=== PATIENT | male | born 1990 | race Two or more races ===

== ENCOUNTER 2024-11-11 18:15 | Emergency (ER) | payer OTHER, SELFPAY ==
[2024-11-11 18:16] VITALS: BMI 30.2
[2024-11-11 18:38] VITALS: BP 147/91; PULSE 76; RESP 20; TEMP 36.7; O2SAT 99
--- NOTE | 2024-11-11 18:41 | XR_ITS ---
Examination: PA lateral chest 2 views Technique: Upright PA lateral chest 2 views Exam date and time: November 11, 2024 at 1909 hrs. Indications: Injury to the chest yesterday chest pain Findings: Normal heart size No pneumothorax Clavicles ribs thoracic vertebral bodies and sternal segments appear intact Impression: No pneumothorax pulmonary contusion or hemothorax
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
== END 2024-11-11 20:45 | disposition home or self-care (01) ==
PROVIDERS: Emergency Provider Emergency Medicine; PCP Family Medicine
DX: S20.219A Contusion of unspecified front wall of thorax, initial encounter (principal); W50.0XXA Accidental hit or strike by another person, initial encounter
CPT/HCPCS: 71046; 99283

== ENCOUNTER 2024-11-16 20:28 | Emergency (ER) | payer OTHER, SELFPAY ==
[2024-11-16 20:28] VITALS: BMI 30.9
[2024-11-16 21:10] VITALS: BP 142/89; PULSE 83; RESP 20; TEMP 36.9; O2SAT 97
--- NOTE | 2024-11-16 21:18 | XR_ITS ---
Examination: CT abdomen with intravenous contrast CT pelvis with intravenous contrast 2-D coronal reconstructions 2-D sagittal reconstructions Date and time of exam:November 16, 2024 10:32 PM Indications: Patient fell off a ladder yesterday with injury in the abdomen, abdominal pain and bruising. CTDI: vol (mGy) 9.23 DLP: (mGycm) 571 Technique: Multiple axial sections of the abdomen and pelvis have been obtained. 64 slice high-resolution scanner used. 3 mm axial sections have been obtained, post intravenous injection 60 cc [id number] 2-D sagittal, coronal reconstructions obtained. Low dose protocols were performed. One or more of the following dose reduction techniques were used; automated exposure control, adjustment of the mA and/or KV according to patient size, use of iterative reconstruction technique. Findings: No focal liver splenic or renal laceration No perinephric hematoma No gallstones No pancreatic or adrenal mass Contusion anterior and left lateral abdominal wall with hemorrhage in the abdominal musculature and 5 x 3.6 x 3.8 cm hematoma in the left anterior abdominal wall image 35 Aorta normal size Normal appendix Negative for pneumoperitoneum Urinary bladder intact Impression: No abdominal parenchymal laceration Abdominal aorta intact No free blood in the abdomen or pelvis Large soft tissue contusion anterior left lateral abdominal wall with 5 x 3.6 x 3.8 hematoma in the left anterior abdominal wall
--- NOTE | 2024-11-16 21:19 | PD.EDRME ---
Rapid Medical Screening Exam [facility] Arrival date/time: 11/16/24 20:28 34M with no significant PMH presents to ED with L lower ab pain/bruising after fall from 10 ft ladder 2 days ago. Patient denies hitting his head, neck, back, chest, SOB, N/V, and bowel/bladder issues. Patient just has a lot of bruising on stomach area and was convinced to come to ED. Chief Complaint: Fall Vital signs: Vital Signs Temperature 98.5 F 11/16/24 21:10 Pulse Rate 83 11/16/24 21:10 Respiratory Rate 20 11/16/24 21:10 Blood Pressure 142/89 H 11/16/24 21:10 Pulse Oximetry (%) 97 11/16/24 21:10 Oxygen Delivery Method Room Air 11/16/24 21:10
[2024-11-16 23:23] LABS: Basophils # (Auto) 0.1 Thou/mm3 (0.0-0.2); Basophils % (Auto) 1 % (0-2.5); Eosinophils # (Auto) 0.3 Thou/mm3 (0.0-0.5); Eosinophils % (Auto) 3 % (0-10); Hematocrit 32.5 % (41.0-53.0); Hemoglobin 10.7 g/dL (13.5-16.0); Immature Granulocytes % (Auto) 0 % (0-0); Immature Granulocytes Auto 0.02 Thou/mm3 (0.00-0.00); Lymphocytes # (Auto) 1.9 Thou/mm3 (1.0-4.8); Lymphocytes % (Auto) 21 % (10-50); Mean Corpuscular HGB Conc 32.9 g/dl (31.0-37.0); Mean Corpuscular Volume 82 fL (80-100); Monocytes # (Auto) 0.5 Thou/mm3 (0.0-0.8); Monocytes % (Auto) 5 % (0-12); Neutrophils # (Auto) 6.3 Thou/mm3 (1.8-7.7); Neutrophils % (Auto) 70 % (37-80); Nucleated Red Blood Cell % 0 /100 WBC (0); Platelet Count 110 Thou/mm3 (140-440); RDW Standard Deviation 46.2 fL (35.1-43.9); Red Blood Count 3.97 Miln/mm3 (4.50-5.90)
[2024-11-16 23:42] LABS: Alanine Aminotransferase 94 U/L (10-49); Albumin, Serum 4.3 gm/dL (3.5-5.0); Albumin/Globulin Ratio 1.3 (1.2-2.2); Alkaline Phosphatase 89 U/L (46-116); Anion Gap 8 (7-16); Aspartate Amino Transferase 208 U/L (0-34); BUN/Creatinine Ratio 14 Ratio (12-20); Bilirubin,Total 0.7 mg/dL (0.3-1.2); Blood Urea Nitrogen 10 mg/dL (9-23); Calcium 9.6 mg/dL (8.3-10.6); Calcium (Corrected) 9.6 mg/dL (8.5-10.1); Chloride 105 mMol/L (98-107); Creatinine (Component) 0.7 mg/dL (0.6-1.3); Estimated Creatinine Clearance 172.9 mL/min (>60); Globulin 3.4 gm/dL (2.3-3.5); Glucose 93 mg/dL (74-106); Osmolality,Calculated 276 (275-295); Potassium 3.9 mMol/L (3.4-5.1); Sodium 139 mMol/L (136-145); Total Protein 7.7 gm/dL (5.7-8.2); eGFR > 60 See Note
[2024-11-16 23:51] LABS: Partial Thromboplastin Time 27.1 Seconds (22.0-36.0); Prothrombin Time 11.4 Seconds (9.0-12.2)
[2024-11-16 23:59] VITALS: BP 140/95; PULSE 73; RESP 18; TEMP 36.9; O2SAT 98
--- NOTE | 2024-11-17 00:19 | EDNOTE_ITS ---
ED Fall Injury RME/HPI General Chief Complaint: Fall Stated Complaint: FELL FROM LADDER DAY Time Seen by Provider: 11/16/24 21:23 Source: patient Arrival date/time: 11/16/24 20:28 Mode of arrival: ambulatory Limitations: no limitations RME / HPI RME / HPI Narrative: 11/16/24 20:28 34M with no significant PMH presents to ED with L lower ab pain/bruising after fall from 10 ft ladder 2 days ago. Patient denies hitting his head, neck, back, chest, SOB, N/V, and bowel/bladder issues. Patient just has a lot of bruising on stomach area and was convinced to come to ED. --- DR. SIFUENTES MAIN ED EVALUATION: 34 yo male who presents to the ED for evaluation of left lower abdominal pain. Patient states this past Friday he fell from the second step from the top of a 10ft ladder onto his side. Denies any head trauma, neck pain, urinary symptoms, back pain, groin pain or any other medical complaints. Patient comes in concerned for the bruising to his left lower abdominal area. Related Data Previous Rx's ?Medication ?Instructions ?Recorded hydrocodone 5 mg-acetaminophen 325 1 tab PO TID #20 tabs 10/02/22 mg tablet Allergies Allergy/AdvReac Type Severity Reaction Status Date / Time No Known Allergies Allergy Verified 11/16/24 20:30 Review of Systems Review of Systems Systems Reviewed: All systems reviewed, normal except as documented Past Medical History Past Medical History CARDIAC: Negative Cardiac Disorders or Congestive Heart Failure RESPIRATORY: Negative Chronic Obstructive Pulmonary Disease (COPD) or Asthma GENITOURINARY: Negative Renal Disease ENDOCRINE: Negative Diabetes Mellitus Type 1 or Diabetes Mellitus Type 2 HEMATOLOGIC: Negative Sickle Cell Disease Social History SMOKING STATUS: Current every day smoker ED Exam General Limitations: Present no limitations General appearance: Present alert and in no apparent distress Head Head exam: Present atraumatic, normocephalic and normal inspection Eye Eye exam: Present normal appearance, PERRL and EOMI ENT ENT exam: Present normal exam, normal oropharynx, TM's normal bilaterally and normal external ear exam Neck Neck exam: Present normal inspection and full ROM Chest Chest inspection: Present normal inspection and symmetric chest wall rise Respiratory Respiratory exam: Present normal lung sounds bilaterally Cardiovascular Cardiovascular exam: Present regular rate, normal rhythm and normal heart sounds Abdominal Exam Abdominal exam: Present normal bowel sounds and other (10x8 cm hematoma on the left abdominal wall, 5x3cm hard area in the middle of that. It is mildly tender. Purple. Negative pneumo. ) Extremities Exam Extremities exam: Present normal inspection and full ROM Back Exam Back exam: Present normal inspection and full ROM Neurological Exam Neurological exam: Present alert, oriented X3 and CN II-XII intact Psychiatric Psychiatric exam: Present normal affect and normal mood; Absent depressed Skin Skin exam: Present warm, dry, intact and normal color Course Quality Measures none Orders Category Date Time Status CT Screening NOW Care 11/16/24 21:18 Completed Insert IV NOW Care 11/16/24 21:[address] abdomen pelvis w con Stat Exams 11/16/24 21:18 Completed CBC Stat Lab 11/16/24 23:00 Completed CMP [Comprehensive Metabolic Panel] Stat Lab 11/16/24 23:00 Completed INR [Prothrombin Time with INR] Stat Lab 11/16/24 23:00 Completed PTT [Partial Thromboplastin Time] Stat Lab 11/16/24 23:00 Completed Ketorolac Inj [Toradol Inj] Med 11/17/24 00:29 Discontinued 30 mg IVP X1 ONE Vital Signs Vital signs: Vital Signs Temperature 98.5 F 11/16/24 21:10 Pulse Rate 83 11/16/24 21:10 Respiratory Rate 20 11/16/24 21:10 Blood Pressure 142/89 H 11/16/24 21:10 Pulse Oximetry (%) 97 11/16/24 21:10 Oxygen Delivery Method Room Air 11/16/24 21:10 Fall MDM Narrative MDM Narrative:: Differential diagnoses include hematoma, intra-abdominal hemorrhage, UTI, hematuria, rib fx ? Scribe Attestation: I, Thalia Paul, am scribing for and in the presence of Dr. Wolf. Provider Notation: Although this document has been carefully reviewed, there may still be some phonetic and other typographical errors. These errors are purely grammatical due to imperfections in the software program and should not be construed in any way to compromise the substance of the patient's medical care during this visit. Patient data External records reviewed:: [facility] previous records Clinical information provided by:: patient Social determinants that could affect healthcare access:: none Patient has the following chronic illnesses:: None How is presenting disease/condition affected by chronic disease/condition?: uneffected by Evaluation data The following diagnostics were reviewed and interpreted by me:: lab results and radiology exam(s) Lab and/or radiology exams considered but not ordered:: None Interpretation Summary: Examination: CT abdomen with intravenous contrast Date and time of exam:November 16, 2024 10:32 PM Indications: Patient fell off a ladder yesterday with injury in the abdomen, abdominal pain and bruising. Findings: No focal liver splenic or renal laceration No perinephric hematoma No gallstones No pancreatic or adrenal mass Contusion anterior and left lateral abdominal wall with hemorrhage in the abdominal musculature and 5 x 3.6 x 3.8 cm hematoma in the left anterior abdominal wall image 35 Aorta normal size Normal appendix Negative for pneumoperitoneum Urinary bladder intact Impression: No abdominal parenchymal laceration Abdominal aorta intact No free blood in the abdomen or pelvis Large soft tissue contusion anterior left lateral abdominal wall with 5 x 3.6 x 3.8 hematoma in the left anterior abdominal wall Dictated By: Sreedhar Beverly MD Medications / Prescriptions Medications or Prescriptions considered but not ordered:: None Medication administrations:: Medication Administration History Discontinued Medications Ketorolac Tromethamine (Ketorolac Inj 30 Mg/Ml Vial) 30 mg IVP X1 ONE Stop: 11/17/24 00:30 Last Admin: 11/17/24 00:37 Dose: 30 mg Documented By: SF As above Consultations Consultation(s) initiated? (list below): No Diagnosis Fall Differential Diagnosis: other (Hematoma, intra-abdominal hemorrhage, UTI, hematuria, rib fx) Most likely diagnosis given after review of the tests above:: Chest wall contusion, Abdominal wall hematoma, UTI (urinary tract infection) Admission Indicated Admission indicated?: not indicated Admission Request Was there a request for admission?: No Disposition Plan Disposition Plan: Discharge Discharge Attestation Discharge Attestation: The patient and all family members were given an opportunity to ask questions and understood the discharge instructions. Discharge instructions specifically effects, indications for sooner follow up or return to the emergency department, and the expected course of current diagnosis. Patient condition: Stable Discharge Plan Plan Patient Disposition: HOME (Self Care) Patient condition on transfer: Stable Prescriptions/Referrals Prescriptions/Med Rec: No Action hydrocodone-acetaminophen 5-325 mg tablet 1 tab PO TID MDD 3 Qty: 20 0RF Referrals: Ernesto Stokes MD [Primary Care Provider] - In 1 week Problem List Clinical Impression: Chest wall contusion, Abdominal wall hematoma Patient/Caregiver Discharge Instructions Diet Instructions: Stay hydrated with Pedialyte and Gatorade for the next 2 to 3 days. Education Materials: Bruises (Contusions) Additional Instructions: Take [id number] Tylenol 650 mg and/or Motrin 600 mg 3 times a day for the next 3 to 5 days. It will take a few weeks for that hematoma to resolve on its own however there is a chance that it could get infected. Please take the antibiotics for your urinary tract infection. If you start feeling dizzy, have any fever, or vomiting and cannot tolerate liquids please return immediately to the emergency department. Follow-up with your primary care in the next 1 week. Return to the emergency department if you have any blood in your stool, fever, or any other concerns. Print Language: Icelandic Stand Alone Forms: Mitzy Award Info., Patient Portal Info Letter
[2024-11-17] MEDS: KETOROLAC INJ 30 MG/ML VIAL IVP (00:37)
== END 2024-11-17 00:56 | disposition home or self-care (01) ==
PROVIDERS: Physician Assistant; Emergency Provider Emergency Medicine; PCP Family Medicine
DX: S20.219A Contusion of unspecified front wall of thorax, initial encounter (principal); S30.1XXA Contusion of abdominal wall, initial encounter; W11.XXXA Fall on and from ladder, initial encounter
CPT/HCPCS: 36415; 74177; 80053; 85025; 85610; 85730; 99285; A4649; J1885; Q9967